=== PATIENT | female | born 1980 | race Caucasian/White ===

== ENCOUNTER 2017-04-14 13:17 | Emergency (ER) | payer SELFPAY ==
[~2017-04-14] VITALS: Ht 160 cm; Wt 54.5 kg
[~2017-04-14 13:17] MED LIST: AMBI10TA PO; AZIT500T2 PO; CLON1TAB PO; FLUC150T PO; KETO10 PO; MEDR4PAK PO; PARO20TA2 PO; ROBA750T PO; ZOFR4TAB3 SL
[2017-04-14 13:18] VITALS: BP 122/67; PULSE 93; RESP 20; TEMP 97.4; O2SAT 100
[2017-04-14] MEDS ORDERED: SODIUM CHLORIDE 0.9% FLUSH 10 ML FLUSH IV FLUSH PRN (13:45)
--- NOTE | 2017-04-14 13:57 | PD ---
HPI Chief Complaint: GI Complaint Time Seen by Provider: 13:52 Travel History International Travel<30 days: No Contact w/Intl Traveler<30days: No Traveled to known affect area: No History of Present Illness HPI 37-year-old female presents to the ER today for several days history of 8 out of 10 abdominal pain which she points is on the right side. She states that it is intermittent in nature and cramping, has been nauseous, and had several episodes of dark diarrhea. She denies any blood, fevers, or any other symptoms. She states that the symptoms started a few days after having been on antibiotics for sinuses. Modifying Factors: None Associated Signs & Symptoms: Nausea, abdominal pain, diarrhea Risk Factors: Recent antibiotic use PFSH Past Medical History Anxiety: Yes Diminished Hearing: No Musculoskeletal: Yes (CHRONIC BACK PAIN) Immunizations Current: Yes Ulcer: Yes (PEPTIC ULCER) ?: Not LMP: 04/14/17 : 3 Para: 2 Miscarriage: 1 Social History Alcohol Use: No Tobacco Use: No Substance Use: No Allergies-Medications (Allergen,Severity, Reaction): Coded Allergies: Latex (Verified Allergy, Severe, RASH, 04/09/17) Sulfa (Verified Allergy, Intermediate, RASH, 04/09/17) Reported Meds & Prescriptions Reported Meds & Active Scripts Active Zofran Odt (Ondansetron Odt) 4 Mg Tab 4 Mg SL Q12HR PRN Ambien (Zolpidem Tartrate) 10 Mg Tab 10 Mg PO HS PRN Medrol Dosepak (Methylprednisolone) 4 Mg Dspk 4 Mg PO DIRECTED Per Pharmacist direction Ketorolac (Ketorolac Tromethamine) 10 Mg Tab 10 Mg PO TID PRN Robaxin (Methocarbamol) 750 Mg Tab 750 Mg PO QID PRN Reported Clonazepam 1 Mg Tab 1 Mg PO BID PRN Tramadol (Tramadol HCl) 50 Mg Tab 50 Mg PO Q8H PRN Review of Systems Except as stated in HPI: all other systems reviewed are Neg Physical Exam Narrative GENERAL: Well-developed young white female patient currently in mild distress. Awake and oriented 3. SKIN: Focused skin assessment warm/dry. HEAD: Atraumatic. Normocephalic. EYES: Pupils equal and round. No scleral icterus. No injection or drainage. ENT: No nasal bleeding or discharge. Mucous membranes pink and moist. NECK: Trachea midline. No JVD. CARDIOVASCULAR: Regular rate and rhythm. No murmur appreciated. RESPIRATORY: No accessory muscle use. Clear to auscultation. Breath sounds equal bilaterally. GASTROINTESTINAL: Abdomen soft, mild right sided abdominal tenderness without guarding or rebound, nondistended. Hepatic and splenic margins not palpable. MUSCULOSKELETAL: No obvious deformities. No clubbing. No cyanosis. No edema. NEUROLOGICAL: Awake and alert. No obvious cranial nerve deficits. Motor grossly within normal limits. Normal speech. PSYCHIATRIC: Appropriate mood and affect; insight and judgment normal. Data Data Last Documented VS Vital Signs Date Time Temp Pulse Resp B/P Pulse Ox O2 Delivery O2 Flow Rate FiO2 04/14/17 15:41 16 04/14/17 14:15 98 Room Air 04/14/17 13:18 97.4 93 122/67 Orders Complete Blood Count With Diff (04/14/17 13:44) Comprehensive Metabolic Panel (04/14/17 13:44) Lipase (04/14/17 13:44) Urinalysis - C+S If Indicated (04/14/17 13:44) Iv Access Insert/Monitor (04/14/17 13:44) Ecg Monitoring (04/14/17 13:44) Oximetry (04/14/17 13:44) Sodium Chloride 0.9% Flush (Ns Flush) (04/14/17 13:45) Ed Urine Pregnancytest Poc (04/14/17 13:44) Ct Abd/Pel W Iv Contrast(Rout) (04/14/17 13:52) Hydromorphone Pf Inj (Dilaudid Pf Inj) (04/14/17 14:00) Ondansetron Inj (Zofran Inj) (04/14/17 14:00) Sodium Chlor 0.9% 1000 Ml Inj (Ns 1000 M (04/14/17 14:00) C Diff Toxin Pcr (04/14/17 14:37) Iohexol 350 Inj (Omnipaque 350 Inj) (04/14/17 15:58) Labs Laboratory Tests Test 04/14/17 04/14/17 14:15 14:40 White Blood Count 6.5 TH/MM3 Red Blood Count 3.84 MIL/MM3 Hemoglobin 10.6 GM/DL Hematocrit 33.0 % Mean Corpuscular Volume 86.0 FL Mean Corpuscular Hemoglobin 27.6 PG Mean Corpuscular Hemoglobin 32.1 % Concent Red Cell Distribution Width 15.3 % Platelet Count 277 TH/MM3 Mean Platelet Volume 8.8 FL Neutrophils (%) (Auto) 82.5 % Lymphocytes (%) (Auto) 13.8 % Monocytes (%) (Auto) 3.1 % Eosinophils (%) (Auto) 0.2 % Basophils (%) (Auto) 0.4 % Neutrophils # (Auto) 5.4 TH/MM3 Lymphocytes # (Auto) 0.9 TH/MM3 Monocytes # (Auto) 0.2 TH/MM3 Eosinophils # (Auto) 0.0 TH/MM3 Basophils # (Auto) 0.0 TH/MM3 CBC Comment DIFF FINAL Differential Comment Sodium Level 141 MEQ/L Potassium Level 3.7 MEQ/L Chloride Level 107 MEQ/L Carbon Dioxide Level 27.7 MEQ/L Anion Gap 6 MEQ/L Blood Urea Nitrogen 16 MG/DL Creatinine 0.77 MG/DL Estimat Glomerular Filtration 85 ML/MIN Rate Random Glucose 98 MG/DL Calcium Level 8.9 MG/DL Total Bilirubin 0.2 MG/DL Aspartate Amino Transf 16 U/L (AST/SGOT) Alanine Aminotransferase 25 U/L (ALT/SGPT) Alkaline Phosphatase 71 U/L Total Protein 7.2 GM/DL Albumin 3.7 GM/DL Lipase 176 U/L Urine Color COLORLESS Urine Turbidity CLEAR Urine pH 7.0 Urine Specific [place] 1.003 Urine Protein NEG mg/dL Urine Glucose (UA) NEG mg/dL Urine Ketones NEG mg/dL Urine Occult Blood MOD Urine Nitrite NEG Urine Bilirubin NEG Urine Urobilinogen LESS THAN 2.0 MG/DL Urine Leukocyte Esterase NEG Urine RBC 1 /hpf Urine WBC LESS THAN 1 /hpf Microscopic Urinalysis Comment CULT NOT INDICATED MDM Medical Decision Making Medical Screen Exam Complete: Yes Emergency Medical Condition: Yes Medical Record Reviewed: Yes Interpretation(s) Laboratory Tests Test 04/14/17 04/14/17 14:15 14:40 Red Blood Count 3.84 MIL/MM3 (4.00-5.30) Hemoglobin 10.6 GM/DL (11.6-15.3) Hematocrit 33.0 % (35.0-46.0) Neutrophils (%) (Auto) 82.5 % (16.0-70.0) Lymphocytes # (Auto) 0.9 TH/MM3 (1.0-4.8) Estimat Glomerular Filtration 85 ML/MIN (>89) Rate Urine Occult Blood MOD (NEG) Differential Diagnosis Abdominal pains, nausea, diarrheagastroenteritis versus cholecystitis versus dehydration versus metabolic issues versus C. difficile colitis versus antibiotic side effect Narrative Course CAT scan did not show any signs of acute intra-abdominal processes. Lab work is otherwise unremarkable. Considering recent antibiotic use, and diarrhea, there is concern for underlying C. difficile diarrhea. C. difficile toxin was sent on stool culture. My plan would be to start her on Flagyl as precaution and give her symptomatic relief for spasm. Return for any worsening in symptoms as necessary. The plan has been discussed with her and she states understanding. Diagnosis Primary Impression: Abdominal pain Med/Other Pt SpecificInfo: Prescription(s) given Scripts Ondansetron Odt (Zofran Odt)4 Mg Tab4 Mg SL Q6HR PRN (Nausea/Vomiting) #7 TAB Ref 0 Prov:Fortunato Collins MD 04/14/17 Dicyclomine (Bentyl)10 Mg Cap10 Mg PO TID PRN (Bowel Management) #12 CAP Ref 0 Prov:Fortunato Collins MD 04/14/17 Metronidazole (Flagyl)500 Mg Gec237 Mg PO BID 7 Days Ref 0 Prov:Fortunato Collins MD 04/14/17 Disposition: 01 DISCHARGE HOME Condition: Stable Fortunato Collins MD Apr 14, 2017 13:56
[2017-04-14] MEDS ORDERED: SODIUM CHLOR 0.9% 1000 ML INJ 1,000 ML IV ONE (14:00)
[2017-04-14] MEDS ORDERED: HYDROmorphone HCL PF 1 MG/ML VIAL IV PUSH ONE (14:00)
[2017-04-14] MEDS ORDERED: ONDANSETRON HCL 4 MG/2 ML VIAL IV PUSH ONE (14:00)
[2017-04-14 14:15] VITALS: RESP 16; O2SAT 98
[2017-04-14 14:37] LABS: AUTOMATED NEUTROPHIL # 5.4 TH/MM3 (1.8-7.7); BASOPHIL % 0.4 % (0.0-2.0); EOSINOPHIL % 0.2 % (0.0-4.0); HEMO FLAGS DIFF FINAL; LYMPH % 13.8 % (9.0-44.0); LYMPHOCYTE # 0.9 TH/MM3 (1.0-4.8); MEAN CORPUSCULAR HEMOGLOBIN 27.6 PG (27.0-34.0); MEAN CORPUSCULAR HGB CONC 32.1 % (32.0-36.0); MONO % 3.1 % (0.0-8.0); NEUT % 82.5 % (16.0-70.0); PLATELET COUNT 277 TH/MM3 (150-450); RED BLOOD COUNT 3.84 MIL/MM3 (4.00-5.30); RED CELL DISTRIBUTION WIDTH 15.3 % (11.6-17.2); WHITE BLOOD COUNT 6.5 TH/MM3 (4.0-11.0)
[2017-04-14] MEDS ORDERED: TRAM50TA PO (14:46)
[2017-04-14] MEDS ORDERED: CLON1TAB PO (14:47)
[2017-04-14 15:09] LABS: ALT (GPT) 25 U/L (10-53); ANION GAP 6 MEQ/L (5-15); AST (GOT) 16 U/L (15-37); BICARBONATE 27.7 MEQ/L (21.0-32.0); BLOOD UREA NITROGEN 16 MG/DL (7-18); CHLORIDE 107 MEQ/L (98-107); POTASSIUM 3.7 MEQ/L (3.5-5.1); SODIUM (NA) 141 MEQ/L (136-145)
[2017-04-14 15:12] LABS: ALKALINE PHOSPHATASE 71 U/L (45-117); GLOMERULAR FILTRATION RATE 85 ML/MIN (>89); TOTAL BILIRUBIN ADULT 0.2 MG/DL (0.2-1.0)
[2017-04-14 15:16] LABS: BLOOD, URINE MOD (NEG); COMMENT (UR) CULT NOT INDICATED; CULTURE IF INDICATED CULT NOT INDICATED; GLUCOSE,URINE NEG (NEG); KETONE, URINE NEG (NEG); NITRITE,URINE NEG (NEG); URINE COLOR COLORLESS (YELLW/STRAW)
[2017-04-14 15:41] VITALS: RESP 16
[2017-04-14] MEDS ORDERED: IOHEXOL 350 MG/ML 10 ML VIAL (for RAD DIAG) IV ONE (15:58)
--- NOTE | 2017-04-14 16:19 | RADRPT ---
EXAM DATE/TIME: 04/14/2017 15:46 [facility] COMPARISON: No previous studies available for comparison. INDICATIONS : Diffuse abdomen pain and diarrhea for two days. IV CONTRAST: 81 cc Omnipaque 350 (iohexol) IV ORAL CONTRAST: No oral contrast ingested. RADIATION DOSE: 9.96 CTDIvol (mGy) MEDICAL HISTORY : None SURGICAL HISTORY : None. ENCOUNTER: Initial ACUITY: 2 days PAIN SCALE: 7/10 LOCATION: Bilateral abdomen TECHNIQUE: Volumetric scanning of the abdomen and pelvis was performed. Using automated exposure control and ad justment of the mA and/or kV according to patient size, radiation dose was kept as low as reasonably achievable to obtain optimal diagnostic quality images. FINDINGS: LOWER LUNGS: The visualized lower lungs are clear. LIVER: Homogeneous density without lesion. There is no dilation of the biliary tree. No calcified gallston es. SPLEEN: Normal size without lesion. PANCREAS: Within normal limits. KIDNEYS: Normal in size and shape. There is no mass, stone or hydronephrosis. ADRENAL GLANDS: Within normal limits. VASCULAR: There is no aortic aneurysm. BOWEL/MESENTERY: The stomach, small bowel, and colon demonstrate no acute abnormality. There is no free air. The appe ndix is well-visualized and normal. ABDOMINAL WALL: Within normal limits. RETROPERITONEUM: There is no lymphadenopathy. BLADDER: No wall thickening or mass. REPRODUCTIVE: IUD present, appears appropriately positioned. Tampon present in the vagina. Bilateral adnexal region s within normal limits. There is trace free fluid in the pelvic cul-de-sac, generally a physiologic a mount for a patient this age. INGUINAL: There is no lymphadenopathy or hernia. MUSCULOSKELETAL: No acute bony abnormality demonstrated. CONCLUSION: Within normal limits. Gamaliel Good MD on April 14, 2017 at 16:13 Board Certified Radiologist. This report was verified electronically.
[2017-04-14] MEDS ORDERED: DICY10 PO (16:32)
[2017-04-14] MEDS ORDERED: METR-1 PO (16:32)
[2017-04-14] MEDS ORDERED: ZOFR4TAB3 SL (16:32)
[2017-04-14] MEDS ORDERED: DIFL150T PO (16:46)
[2017-04-14 21:03] LABS: C. DIFF EPI 027 PRESUMPTIVE NEGATIVE (NEGATIVE); C. DIFF TOXIN PCR NEGATIVE (NEGATIVE)
[2017-04-25] MEDS ORDERED: ROBA750T PO (16:12)
== END 2017-04-14 16:59 | disposition home or self-care (01) ==
LOC: NEPC 13:17
DX: R19.7 Diarrhea, unspecified (principal)
CPT/HCPCS: 74177; 80053; 81001; 83690; 84703; 85025; 87493; 96361; 96374; 96375; 99285; J1170; J2405; J7030; Q9967

== ENCOUNTER 2017-12-24 23:13 | Emergency (ER) | payer MEDICAID ==
[~2017-12-24] VITALS: Ht 157.5 cm; Wt 65.0 kg
[~2017-12-24 23:13] MED LIST changes: -AZIT500T2 PO; +DICY10 PO; -FLUC150T PO; -KETO10 PO; -MEDR4PAK PO; -PARO20TA2 PO; +TRAM50TA PO
[2017-12-24 23:47] VITALS: BP 157/67; PULSE 101; RESP 16; TEMP 98.1; O2SAT 100
--- NOTE | 2017-12-25 03:38 | PD ---
HPI Chief Complaint: Pain: Acute or Chronic Time Seen by Provider: 02:37 Travel History International Travel<30 days: No Contact w/Intl Traveler<30days: No Traveled to known affect area: No History of Present Illness HPI The patient is a 37 year old female who presents to the [facility] emergency department with a history of vaginal bleeding that began when she had her IUD replaced on December 20. She reports that she had an IUD in place prior to this that dislodged 1 month ago. She reports that prior to arrival she passed a small blood clot was concerned that she may have been . The patient reports that she has abdominal cramping as if she is having her menstrual cycle, however her last menstrual cycle prior to having the IUD placed was earlier in the month from December 05-. The patient incidentally reports another concern of neck and back pain. She reports that she has a history of chronic neck and back pain related to muscle spasms. She reports that Robaxin has helped in the past, however she does not currently have any. 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 She reports that she is taking ibuprofen for the pain without relief. She reports having spasms in the right side of her upper back and right side of her low back. Patient reports that laying on her left side helps the pain. A review of systems otherwise, the patient denies having any known recent fevers, cough, congestion , chest pain, shortness of breath, abdominal pain, vomiting, diarrhea, urinary symptoms, weakness in her upper or lower extremities, weight loss, night sweats , history of IV drug use, loss of bowel or bladder control, or numbness or tingling to her extremities. [facility] Past Medical History Narrative Medical The patient's past medical history is significant for chronic neck and back pain , history of peptic ulcer disease, history of anxiety disorder. Anxiety: Yes Diminished Hearing: No Musculoskeletal: Yes (CHRONIC BACK PAIN) Immunizations Current: Yes Ulcer: Yes (PEPTIC ULCER) Tetanus Vaccination: < 5 Years Influenza Vaccination: No ?: Not : 3 Para: 2 Miscarriage: 1 Past Surgical History Narrative Surgical The patient's past surgical history is significant for breast augmentation, right hand surgery Social History Alcohol Use: No Tobacco Use: No Substance Use: No Allergies-Medications (Allergen,Severity, Reaction): Coded Allergies: latex (Unverified Allergy, Severe, RASH, 12/25/17) Sulfa (Sulfonamide Antibiotics) (Unverified Allergy, Intermediate, RASH, ) Reported Meds & Prescriptions Reported Meds & Active Scripts Active Clonazepam 1 Mg Tab 1 Mg PO BID PRN Ambien (Zolpidem Tartrate) 10 Mg Tab 10 Mg PO HS PRN Review of Systems Except as stated in HPI: all other systems reviewed are Neg General / Constitutional: No: Fever Eyes: No: Visual changes HENT: No: Headaches Cardiovascular: No: Chest Pain or Discomfort Respiratory: No: Shortness of Breath Gastrointestinal: No: Abdominal Pain Genitourinary: Positive: Vaginal Bleeding, No: Dysuria Musculoskeletal: Positive: Myalgias, Pain Skin: No Rash Neurologic: No: Weakness Psychiatric: No: Depression Endocrine: No: Polydipsia Hematologic/Lymphatic: No: Easy Bruising Physical Exam Narrative General: The patient is a well-developed well-nourished female in no acute. Head and Neck exam: Head is normocephalic atraumatic. Eyes: EOMI, pupils are equal round and reactive to light. Nose: Midline septum with pink mucous membranes Mouth: Dentition unremarkable. Moist mucus membranes. Posterior oropharynx is not erythematous. No tonsillar hypertrophy. Uvula midline. Airway patent. Neck: No palpable lymphadenopathy. No nuchal rigidity. No thyromegaly. Cardiovascular: Regular rate and rhythm without murmurs, gallops, or rubs. Lungs: Clear to auscultation bilaterally. No wheezes, rhonchi, or rales. Abdomen: Soft, without tenderness to palpation in all 4 quadrants of the abdomen. No guarding, rebound, or rigidity. Normal bowel sounds are audible. No tenderness on palpation of McBurney's point. Negative Kidd sign Extremities: No clubbing, cyanosis, or edema. 2+ pulses in all 4 extremities. No calf tenderness on palpation Back: No spinous process tenderness to palpation. No costovertebral angle tenderness to palpation. The patient on examination reports tenderness on palpation of the right trapezius, musculature in the right buttock and over the SI joint Neurologic Exam: Grossly nonfocal. Skin Exam: No rash noted. Intact skin that is warm and dry. Data Data Last Documented VS Vital Signs Date Time Temp Pulse Resp B/P (MAP) Pulse Ox O2 Delivery O2 Flow Rate FiO2 12/24/17 23:47 98.1 101 16 157/67 (97) 100 Room Air Orders Orders Urinalysis - C+S If Indicated (12/25/17 03:38) Ed Urine Pregnancytest Poc (12/25/17 03:55) Orphenadrine Inj (Norflex Inj) (12/25/17 04:00) Labs Laboratory Tests Test 12/25/17 04:00 [facility] Medical Decision Making Medical Screen Exam Complete: Yes Emergency Medical Condition: Yes Medical Record Reviewed: Yes Differential Diagnosis Lumbar radiculopathy, versus myalgias, versus muscle strain, versus overuse injury, versus urinary tract infection, versus , versus dysfunctional uterine bleeding from recent IUD placement Narrative Course During the course of the patient's emergency department visit, the patient's history, examination, and differential diagnosis were reviewed with the patient. The patient was placed on a cardiac cath tech with oximetry and frequent blood pressure monitoring. The patient had a urine sent for analysis, point-of- care test done. [id number] test was negative. The patient was initially provided Norflex 60 mg IM. The patient's laboratory studies were reviewed and remarkable for a urinalysis that shows 14 RBCs, moderate occult blood, otherwise unremarkable, culture not indicated. This is clearly contaminant from her vaginal bleeding. The patient's dysfunctional uterine bleeding is likely related to IUD placement as this is common and should improve with time. The patient was instructed that she could also have some cramping related to the placement. The patient will be discharged home with a prescription for Robaxin and she reports that this has helped with muscle spasms in the past in her neck and back. She is encouraged to follow-up with her primary care physician for reexamination in 1 week The patient is resting comfortably and feels better, is alert and in no distress. The patient's results and examination findings were discussed with the patient. The repeat examination is unremarkable and benign. The history, exam, diagnostic testing, and current condition do not suggest any significant pathology to warrant further testing, continued ED treatment, admission, or surgical evaluation at this point. The vital signs have been stable. The patient does not have uncontrollable pain, intractable vomiting, or other significant symptoms. The patient's condition is stable and appropriate for discharge. The patient will pursue further outpatient evaluation with a primary care physician or other designated or consulting physician as indicated in the discharge instructions. The patient expressed understanding and was agreeable with this plan. Diagnosis Primary Impression: Muscle spasm Additional Impression: IUD check up Referrals: Primary Care Physician 1 week Patient Instructions: General Instructions, Muscle Spasm (ED) Med/Other Pt SpecificInfo: Prescription(s) given Disposition: DISCHARGE HOME Condition: Stable Cara Catalan MD Dec 25, 2017 03:38
[2017-12-25] MEDS ORDERED: ORPHENADRINE INJ 60 MG/2 ML AMP IM ONE (04:00)
[2017-12-25 04:25] LABS: BACTERIA, URINE RARE /hpf; BILIRUBIN, URINE NEG (NEG); BLOOD, URINE MOD (NEG); GLUCOSE,URINE NEG (NEG); KETONE, URINE NEG (NEG); MUCUS URINE FEW /lpf (OCC); NITRITE,URINE NEG (NEG); PH, URINE 5.5 (5.0-8.5); SQUAMOUS EPITHELIAL CELL URINE 1 /hpf (0-5); URINE COLOR LIGHT-YELLOW (YELLW/STRAW); URINE LEUKOCYTE ESTERASE NEG (NEG)
[2017-12-25] MEDS ORDERED: ROBA500T PO (04:31)
[2017-12-25 05:11] VITALS: BP 112/64; PULSE 72; RESP 20; O2SAT 100
== END 2017-12-25 05:20 | disposition home or self-care (01) ==
LOC: NEPE 23:13
DX: M62.838 Other muscle spasm (principal); Z30.431 Encounter for routine checking of intrauterine contraceptive device
CPT/HCPCS: 81001; 84703; 96372; 99283; J2360